=== PATIENT | female | born 1955 | race Caucasian/White ===

== ENCOUNTER 2023-07-18 16:01 | Emergency (ER) | payer MEDICARE, SELFPAY ==
[2023-07-18 16:04] VITALS: BP 129/77; PULSE 119; TEMP 37.1; O2SAT 98; BMI 18.4
[2023-07-18] MEDS: KETOROLAC TROMETHAMINE 60 MG/2 ML VIAL 30 MG IM (16:59)
[2023-07-18] MEDS: HYDROCODONE/ACET 5-325 MG TABLET 1 TAB PO (17:00)
[2023-07-18] MEDS: TIZANIDINE HCL 4 MG TABLET 2 MG PO (17:38)
[2023-07-18 17:40] VITALS: BP 121/77; PULSE 105; O2SAT 94
--- NOTE | 2023-07-18 19:44 | ED.GENADUL1 ---
HPI HPI - General Adult General Chief complaint: Headache Stated complaint: NECK PAIN Time Seen by Provider: 07/18/23 16:06 Source: patient and family Mode of arrival: walk-in Limitations: no limitations History of Present Illness HPI narrative: 67-year-old female presents to the emergency department with son with complaint of left-sided neck pain. Woke up with the pain this morning. Has been constant. Pain worse with palpation or movement. Had a similar pain on her right side of her neck yesterday morning, but this has resolved. Denies any specific injury, radiation into her arms, motor or sensory changes, paresthesias. Quality:?Tight Severity:?Mild Timing:?Since this morning, const Context: Normal setting and activity? Modifying factors:?Worse with palpation or movement Associated symptoms: swelling Related Data Home Medications ?Medication ?Instructions ?Recorded ?Confirmed apixaban 5 mg tablet (Eliquis) 5 mg PO BID 07/18/23 07/18/23 atorvastatin 40 mg tablet 40 mg PO DAILY 07/18/23 07/18/23 diltiazem HCl 180 mg capsule,24 180 mg PO DAILY 07/18/23 07/18/23 hr,extended release duloxetine 60 mg capsule,delayed 60 mg PO DAILY 07/18/23 07/18/23 release sprinkle Previous Rx's ?Medication ?Instructions ?Recorded lidocaine 5 % topical patch 1 patch topical DAILY PRN neck #15 07/18/23 (Lidoderm) ea tizanidine 2 mg capsule 2 mg PO TID PRN muscle spasticity 07/18/23 #10 caps Allergies Allergy/AdvReac Type Severity Reaction Status Date / Time flumazenil Allergy Mild Verified 07/18/23 16:27 Opioid HPI Opioid Management Most Recent Opioid Data: Last Pain Scale 4 07/18/23 17:41 Last ED Pain Assessment 07/18/23 17:41 Last MAR Pain Assessment 07/18/23 17:00 Review of Systems ROS Narrative CONST: Denies activity change, weakness MS: + Neck pain, left upper back pain, myalgia. SKIN: Denies color change, wound NEURO: Denies numbness, paresthesias, weakness Exam Narrative Exam Narrative: Vital signs noted Nurses notes reviewed CONST: Nontoxic, well appearing, well nourished, in no distress.? HENT: normocephalic, atraumatic. Neck: Patient displays slight tilting of her neck. She has some reduced range of motion especially when she attempts to turn her head to the right. She also has increased pain with extension and flexion of the neck. No appreciable rigidity, crepitus, discoloration on exam. CV: 2+ palpable bilateral radial pulses MS: Neck and upper back: +tenderness to the left trapezius with extension into the neck. Patient winces when this area is palpated. There appears and feels like there is some spasm in this muscle.? No tenderness to the spinous process.? No ecchymosis, discoloration, crepitus, deformity, instability, warmth.? ROM both upper extremities is full. Assistant Golf Coach, push, pull are strong and equal bilaterally..? Strength 5/5 NEURO: Sensory intact throughout and distal to the injury SKIN: intact, warm, dry.? No abrasion, laceration PSYCHIATRIC: normal mood, affect Constitutional Vital Signs, click to edit/add: Last Vital Signs Temp 98.8 F 07/18/23 16:04 Pulse 105 H 07/18/23 17:40 Resp 20 07/18/23 17:40 BP 121/77 07/18/23 17:40 Pulse Ox 94 L 07/18/23 17:40 O2 Del Method Room Air 07/18/23 16:04 Course Reevaluation(s) Reevaluation #1: Patient smiling, reports overall improvement of her pain after treatment. Discussed with patient and son plan, disposition. They are agreeable. Time: 17:47 Vital Signs Vital signs: Vital Signs Temperature 98.8 F 07/18/23 16:04 Pulse Rate 119 H 07/18/23 16:04 Respiratory Rate 20 07/18/23 16:04 Blood Pressure 129/77 07/18/23 16:04 Pulse Oximetry 98 07/18/23 16:04 Oxygen Delivery Method Room Air 07/18/23 16:04 Temperature 98.8 F 07/18/23 16:04 Pulse Rate 105 H 07/18/23 17:40 Respiratory Rate 20 07/18/23 17:40 Blood Pressure 121/77 07/18/23 17:40 Pulse Oximetry 94 L 07/18/23 17:40 Oxygen Delivery Method Room Air 07/18/23 16:04 Medical Decision Making MDM Narrative Medical decision making narrative: This is a pleasant 67-year-old female presents to the emergency department send with complaint of left-sided neck pain. Woke up with the pain. Denies any motor or sensory changes, specific injury, paresthesias. On arrival, afebrile, vital signs are stable. On exam, nontoxic, well-appearing patient in no distress. Head is slightly tilted. She has reduced range of motion of her head, neck due to the pain especially with turning her head to the right, extending her neck, flexing her neck. She has acute, point tenderness along the trapezius of the left upper back into the neck. No spinous process tenderness. No discoloration. No crepitus palpated on exam. Assistant Golf Coach, push, pull are strong and equal bilaterally. No focal deficits. Patient is ambulatory. Favor torticollis Fracture, dislocation less likely based on history and physical exam Patient treated with tizanidine, Toradol, and [place] with overall improvement of her symptoms. Considered imaging, but denies any traumatic injury. She had no spinous process tenderness. She improved markedly with treatment. No neurovascular deficits were noted on exam. Disposition ? The patient was discharged. Plan: Patient will be discharged to home. Condition at time of disposition: stable She was sent home with prescription for tizanidine, Lidoderm patches Advised to follow up with primary provider. Advised to return for any worsening and/or development of new, concerning signs or symptoms PLEASE NOTE: Portions of the medical record may have been produced using electronic ethanol quality leader and may contain errors with respect to translation of words which may not have been identified prior to finalization of the chart. Medical Records Medical records reviewed: Yes I reviewed the patient's medical records Discharge Plan Discharge Stand Alone Forms: Portal Instructions Chief Complaint: Headache Clinical Impression: Acute torticollis, Acute neck pain Patient Disposition: Home, Self-Care Time of Disposition Decision: 17:47 Condition: Good Mode of Transportation: Private Vehicle Prescriptions / Home Meds: New tizanidine 2 mg capsule 2 mg PO TID PRN (Reason: muscle spasticity) Qty: 10 0RF lidocaine [Lidoderm] 5 % adhesive patch,medicated 1 patch topical DAILY PRN (Reason: neck) Qty: 15 0RF Rx Instructions: leave on most painful area for up to 12 hrs No Action Eliquis 5 mg tablet 5 mg PO BID diltiazem HCl 180 mg capsule,extended release 24 hr 180 mg PO DAILY atorvastatin 40 mg tablet 40 mg PO DAILY duloxetine 60 mg capsule, delayed rel sprinkle 60 mg PO DAILY Print Language: Vietnamese Instructions: Neck Pain (ED) Referrals: Cristofer Cortes MD [Physician] - 07/20/23 Discharge Date/Time: 07/18/23 17:55
== END 2023-07-18 17:55 | disposition home or self-care (01) ==
PROVIDERS: Emergency Provider Emergency Medicine
DX: M43.6 Torticollis (principal); M54.2 Cervicalgia; Z79.01 Long term (current) use of anticoagulants; Z79.899 Other long term (current) drug therapy
CPT/HCPCS: 96372; 99284